=== PATIENT | female | born 1955 | race Caucasian/White ===

== ENCOUNTER 2022-11-19 15:01 | Emergency (ER) | payer MEDICAID, SELFPAY ==
--- NOTE | ~2022-11-19 | XR_ITS ---
EXAMINATION: XR KNEE, RIGHT CLINICAL INFORMATION: Knee pain COMPARISON: None available. TECHNIQUE: Four views of the right knee. FINDINGS: Medial there is loss of medial and patellofemoral joint space with mild periapical spurring. No acute fracture, dislocation or loose body seen. No bony erosive changes. The soft tissues are normal. XR/XR knee RT 3V IMPRESSION: Mild degenerative changes medial and patellofemoral compartment. No visible acute fracture or dislocation seen.
[2022-11-19 15:03] VITALS: BP 118/82; BP 172/73; PULSE 88; PULSE 96; RESP 20; TEMP 37.2; O2SAT 100; O2SAT 97; BMI 34.3
[2022-11-19] MEDS: Acetaminophen 325 MG TABLET 650 MG PO (16:18)
[2022-11-19] MEDS: Ketorolac Tromethamine 30 MG/ML VIAL IM (16:18)
[2022-11-19 16:38] VITALS: BP 147/77
--- NOTE | 2022-11-19 18:20 | ED.LOWEXIN ---
HPI - Extremity Injury (Lower) General Chief Complaint: Extremity Injury, Lower Stated Complaint: R knee pain per EMS Time Seen by Provider: 11/19/22 15:08 Source: patient, EMS, RN notes reviewed and old records reviewed Mode of arrival: EMS History of Present Illness HPI Narrative: 67-year-old female with a past medical history of osteoarthritis presenting to the ED complaining of acute on chronic right knee pain x few days. Reports this morning was unable to ambulate secondary to pain thus called EMS. Admits was scheduled for knee replacement however postponed surgery. Reports pain okay when still, worse with pressure/ambulation. Denies new or recent fall/injury or trauma, numbness/tingling, weakness, erythema/fever. MD complaint: knee injury Related Data Previous Rx's Medication Instructions Recorded acetaminophen 500 mg tablet 500 mg PO Q6H PRN fever or pain 11/19/22 (Tylenol Extra Strength) #14 tabs diclofenac sodium 1 % topical gel 4 g topical QID #100 grams 11/19/22 (Arthritis Pain (diclofenac)) ketorolac 10 mg tablet 10 mg PO TID PRN pain 5 days #15 11/19/22 tabs Allergies Allergy/AdvReac Type Severity Reaction Status Date / Time No Known Allergies Allergy Verified 11/19/22 15:10 Review of Systems Review of Systems: Constitutional: No Fever, No Chills ENT/Mouth: No Ear Pain, No Nasal Congestion, No sore throat, No Rhinorrhea, No Swallowing Difficulty Cardiovascular: No Chest Pain, No SOB Respiratory: No Cough Gastrointestinal: No Nausea, No Vomiting, No Diarrhea, No Constipation, No Abdominal pain Genitourinary: No Dysuria, No Urinary Frequency, No Flank Pain Musculoskeletal: + joint pain, No Myalgias, + Joint Swelling Skin: No Skin Lesions, No rash Neuro: No Weakness, No Numbness, No Paresthesias Yes all other systems are reviewed and are negative Constitutional: Constitutional: Reports as per [facility] Past Medical History Attestation statement: The following information was validated with the patient. Social History Social History Advance Directives: No Advance Directives Information Provided: No Physical Exam Vital Signs: Vital Signs: Last Vital Signs Temp 98.9 F 11/19/22 15:03 Pulse 96 11/19/22 15:03 Resp 20 04/16/23 15:03 BP 147/77 H 11/19/22 16:38 Pulse Ox 97 11/19/22 15:03 O2 Del Method Room Air 11/19/22 15:03 BMI result Body Mass Index 34.3 Const: General: cooperative, healthy appearing and no acute distress Orientation/consciousness: patient oriented x3 Limitations: no limitations HEENT: Head: Yes normal to inspection and Yes atraumatic Ears: hearing grossly normal bilaterally General nose exam: Normal external nose present Face and sinus: Yes normal facial exam Eyes: General: appearance normal, both eyes and all related structures EOM: EOMs intact bilaterally Neck: Neck: Yes normal visual inspection and Yes no meningeal signs Resp: Effort & Inspection: normal respiratory effort and no respiratory distress Cardio: Rate: regular rate Heart sounds: S1 normal heart sound present and S2 normal heart sound present Peripheral pulses: Peripheral pulses 2+ throughout Skin: Rashes: no rashes Wounds: no wounds Neuro: General: patient oriented x3, tone normal and no meningeal signs Gait exam (Neuro): Normal gait present Extrem: Other: Right knee with mild swelling, no erythema/warmth. Mildly tender to palpation. Flexion and extension limited secondary to pain/discomfort. NV intact distally. No pitting edema or calf tenderness General: Yes normal to inspection Course Course Course Narrative: XR knee RT 3V IMPRESSION: Mild degenerative changes medial and patellofemoral compartment. No visible acute fracture or dislocation seen. >> patient reports symptomatic improvement after IM Toradol and Tylenol. Bryon wrap applied for comfort/stability. Patient is supplied with crutches. Offered PT/case management however patient would rather be discharged home. Recommended close follow-up with her orthopedic Results discussed with patient including worrisome signs and symptoms and strict return precautions, and when to return to the emergency department. They verbalized understanding and feel safe for discharge at this time. Medications Administered Discontinued Medications Generic Name Dose Route Start Last Admin Trade Name Sammie PRN Reason Stop Dose Admin Acetaminophen 650 mg 11/19/22 15:34 11/19/22 16:18 Acetaminophen 325 Mg Tablet PO 11/19/22 15:35 650 mg ONCE ONE Administration Ketorolac Tromethamine 30 mg 11/19/22 15:34 11/19/22 16:18 Ketorolac Tromethamine 30 Mg/Ml Vial IM 11/19/22 15:35 30 mg ONCE ONE Administration Medical Decision Making Medical Decision Making [facility] Narrative: 67-year-old female with a past medical history of osteoarthritis presenting to the ED complaining of acute on chronic right knee pain x few days. On exam vital signs stable, NAD, nontoxic appearing, physical exam as above. No evidence of cellulitis/septic joint/arthritis. Concern for osteoarthritic flare vs tendon or ligamental or meniscus injury. Plan: X-rays, pain control Please refer to course for remaining clinical decision making, interpretation of labs/imaging results, and discussions with consultants and/or family members. Differential Diagnosis Differential Diagnoses: The differential diagnosis associated with the presentation includes As above Admission/Observation Consideration of admission/observation: Escalation of care including admission/observation considered Lab Data [facility] Lab Attestation statement: I reviewed the patient's lab results. Radiology Impression Discussion of test interpretation with radiology: I have reviewed the radiologist's reading. External Record Review External record reviewed: Inpatient record, Office record, Outpatient record, Prior outpatient labs, Prior outpatient radiology, Primary care record and Outside ED record Discharge Plan Discharge Clinical Impression: Knee osteoarthritis Patient Disposition: Home, Self-Care Instructions: Osteoarthritis (DC) Additional Instructions: Your x-ray shows osteoarthritis. Wear Bryon wrap for comfort and stability Use crutches as needed. Bear weight as tolerated. Rest Ice and elevate Toradol as an anti-inflammatory/pain medication, take with food In addition take Tylenol and apply topical diclofenac lotion which is an anti-inflammatory Follow-up with her doctor and Orthopedics Prescriptions: New acetaminophen [Tylenol Extra Strength] 500 mg tablet 500 mg PO Q6H PRN (Reason: fever or pain) Qty: 14 0RF ketorolac 10 mg tablet 10 mg PO TID PRN (Reason: pain) 5 Days Qty: 15 0RF diclofenac sodium [Arthritis Pain (diclofenac)] 1 % gel 4 g topical QID Qty: 100 0RF Rx Instructions: apply to single knee, ankle, foot; for foot includes sole/toes/top of foot Referrals: [facility] Orth[facility] Surgeons [Provider Group] - 1 week Center,[facility] [Primary Care Provider] -
== END 2022-11-19 18:42 | disposition home or self-care (01) ==
PROVIDERS: Emergency Provider Internal Medicine
DX: M17.11 Unilateral primary osteoarthritis, right knee (principal); M25.561 Pain in right knee; Z79.899 Other long term (current) drug therapy
CPT/HCPCS: 73562; 96372; 99284; J1885

== ENCOUNTER 2023-07-07 21:59 | Emergency (ER) | payer OTHER, SELFPAY ==
[2023-07-07 22:11] VITALS: BP 150/71; PULSE 78; O2SAT 99
[2023-07-07 22:13] VITALS: BP 141/75; PULSE 71; RESP 23; TEMP 36.4; O2SAT 98; BMI 35.4
[2023-07-07 22:19] VITALS: BP 141/75; PULSE 71; RESP 23; TEMP 36.4; O2SAT 97
--- NOTE | 2023-07-07 22:25 | ED_ITS ---
HPI - Anxiety General Chief Complaint: Anxiety Stated Complaint: Nausea/Anxiety Time Seen by Provider: 07/07/23 22:25 Source: patient Mode of arrival: ambulatory Limitations: no limitations History of Present Illness HPI narrative: Patient with anxiety/panic attacks prior to arrival felt similar attack and called 911 feel panicky take Seroquel which she took earlier no recent stress no chest pain or palpitation no fever or chills no cough or shortness of breath , feels nauseated Related Data Previous Rx's Medication Instructions Recorded acetaminophen 500 mg tablet 500 mg PO Q6H PRN fever or pain 11/19/22 (Tylenol Extra Strength) #14 tabs diclofenac sodium 1 % topical gel 4 g topical QID #100 grams 11/19/22 (Arthritis Pain (diclofenac)) ketorolac 10 mg tablet 10 mg PO TID PRN pain 5 days #15 11/19/22 tabs Allergies Allergy/AdvReac Type Severity Reaction Status Date / Time No Known Allergies Allergy Verified 11/19/22 15:10 Review of Systems Review of Systems: Yes all other systems are reviewed and are negative [facility] Social History Social History Smoked in Last 30 Days: No Use of substances other than those prescribed or required for medical reasons: No Advance Directives: No Advance Directives Information Provided: No Physical Exam Vital Signs: Vital Signs: Last Vital Signs Temp 97.6 F 07/07/23 22:19 Pulse 71 07/07/23 22:19 Resp 23 H 07/07/23 22:19 BP 141/75 H 07/07/23 22:19 Pulse Ox 97 07/07/23 22:19 O2 Del Method Room Air 07/07/23 22:19 BMI result Body Mass Index 35.4 Appearance: Alert. Oriented X3. No acute distress. Anxious Eyes: PERRLA, No Nystagmus ENT: Pharynx normal. Oral Mucosa moist Neck: Normal inspection. Neck supple. CVS: Normal heart rate and rhythm. Pulses normal. Respiratory: No respiratory distress. Equal air entry bilateral, no wheezing/rales/rhonchi Abdomen: Soft and nontender. Bowel sounds are present, Skin: Skin warm and dry. Normal skin color. Normal skin turgor. Extremities: No lower extremity edema. No calf tenderness Neuro: Oriented X 3. No motor deficit. Medications Administered Discontinued Medications Generic Name Dose Route Start Last Admin Trade Name Freq PRN Reason Stop Dose Admin Sodium Chloride 1,000 mls @ 999 mls/hr 07/07/23 23:20 07/08/23 00:00 Ns IV 07/08/23 00:20 999 mls/hr .Q1H1M ONE Administration Lorazepam 1 mg 07/07/23 23:20 07/07/23 23:55 Lorazepam 2 Mg/Ml Vial IVPUSH 07/07/23 23:21 1 mg ONCE ONE Administration Ondansetron HCl 4 mg 07/07/23 23:20 07/07/23 23:56 Ondansetron Hcl 4 Mg/2 Ml Vial IVPUSH 07/07/23 23:21 4 mg ONCE ONE Administration Medical Decision Making Medical Decision Making [facility] Narrative: Patient with anxiety UA negative no other symptoms feeling much better after Ativan will discharge patient home advised to continue her Seroquel Differential Diagnosis Differential Diagnoses: The differential diagnosis associated with the presentation includes Anxiety/panic attack/UTI Lab Data [facility] Lab Attestation statement: I reviewed the patient's lab results. Labs: Lab Results 07/08/23 Range/Units 00:55 Urine Color Yellow Urine Appearance Clear Urine pH 7.5 (5.0-9.0) Ur Specific [place] 1.010 (1.005-1.025) Urine Protein Negative (Neg-Trace) mg/dL Urine Glucose (UA) Negative (Negative) mg/dL Urine Ketones Negative (Negative) mg/dL Urine Blood Trace (Negative) Urine Nitrite Negative (Negative) Ur Leukocyte Esterase Trace H (Negative) Urine RBC 0-2 (0-2) /HPF Urine WBC 6-10 H (0-5) /HPF Ur Squamous Epith Cells 0-2 (0-2) /HPF Urine Bacteria None Seen (None Seen) Hyaline Casts 0-2 (0-2) /LPF Discharge Plan Discharge Clinical Impression: Acute anxiety Patient Disposition: Home, Self-Care Instructions: Generalized Anxiety Disorder (ED) Additional Instructions: Could you take your medication as prescribed Rest at home and follow with PCP Prescriptions: No Action acetaminophen [Tylenol Extra Strength] 500 mg tablet 500 mg PO Q6H PRN (Reason: fever or pain) Qty: 14 0RF ketorolac 10 mg tablet 10 mg PO TID PRN (Reason: pain) 5 Days Qty: 15 0RF diclofenac sodium [Arthritis Pain (diclofenac)] 1 % gel 4 g topical QID Qty: 100 0RF Rx Instructions: apply to single knee, ankle, foot; for foot includes sole/toes/top of foot
[2023-07-07] MEDS: LORazepam 2 MG/ML VIAL 1 MG IVPUSH (23:55)
[2023-07-07] MEDS: ondansetron HCL 4 MG/2 ML VIAL IVPUSH (23:56)
[2023-07-08] MEDS: 0.9 % Sodium Chloride 1,000 ML 999 ML IV
[2023-07-08 01:05] LABS: Appearance Urine Clear; Color Urine Yellow; Glucose Urine UA Negative (Negative); Leukocyte Esterase Urine Trace (Negative); Nitrite Urine Negative (Negative); PH 7.5 (5.0-9.0); UMIC TRIGGER UACC YES; Urine Blood Trace (Negative); Urine Ketones Negative (Negative); Urine Protein Negative (Neg-Trace)
[2023-07-08 01:10] LABS: Bacteria Urine None Seen (None Seen); Hyaline Casts Urine 0-2 /LPF (0-2); RBC Urine 0-2 /HPF (0-2); Squamous Epithelial Cell Urine 0-2 /HPF (0-2); UACC Culture Trigger YES
== END 2023-07-08 01:59 | disposition home or self-care (01) ==
PROVIDERS: Emergency Provider Internal Medicine; PCP Nurse Practitioner Family
DX: F41.9 Anxiety disorder, unspecified (principal); R11.0 Nausea; Z79.899 Other long term (current) drug therapy
CPT/HCPCS: 81001; 81003; 87086; 96361; 96374; 96375; 99284; J2060; J2405

== ENCOUNTER 2024-01-07 17:38 | Emergency (ER) | payer OTHER, SELFPAY ==
[2024-01-07 18:03] VITALS: BP 190/90; PULSE 80; O2SAT 98
[2024-01-07 18:05] VITALS: BP 178/78; PULSE 85; RESP 18; TEMP 36.8; O2SAT 96; BMI 34.3
[2024-01-07 18:11] VITALS: BP 178/78; PULSE 85; RESP 18; TEMP 36.8; O2SAT 96
--- NOTE | 2024-01-07 18:17 | ECG_ITS ---
Test Reason : ANXIETY Blood Pressure : / mmHG Vent. Rate : 073 BPM Atrial Rate : 073 BPM P-R Int : 162 ms QRS Dur : 088 ms QT Int : 438 ms P-R-T Axes : 051 -33 088 degrees QTc Int : 482 ms Normal sinus rhythm Left axis deviation Moderate voltage criteria for LVH, may be normal variant ( R in aVL , [place] product ) Abnormal ECG When compared with ECG of 27-DEC-2004 00:16, No significant change was found Referred By: Talita Duran Electronically Signed By:CASS ZAMORA MD
--- NOTE | 2024-01-07 18:19 | ED_ITS ---
HPI - General Adult General Chief complaint: Anxiety Stated complaint: anxiety attack Time Seen by Provider: 01/07/24 18:02 Source: patient Mode of arrival: EMS Limitations: no limitations History of Present Illness HPI narrative: Patient is a 68-year-old female who presents to the emergency department via EMS for evaluation of the panic attack. She reports that while at home today she began to feel nauseous, sweaty, and having shortness of breath. She admits to this feeling similar to prior panic attack that she had at the end of last year. She states she was seen in the emergency department here and given Ativan with improvement in her symptoms. She takes daily medication from her primary care provider for management of her anxiety, she received a prescription for Ativan in the past but suture has only needed to use this on 1 occasion. When asked if there was any precipitating events that would have brought on a panic attack today she commonly states ?I think my 's dog may have an infection?. While in the room she states that she ?feels another attack coming on? she is feeling excessively nauseous, mildly short of breath, and sweaty. She denies any recent ill symptoms fevers chills chest pain palpitations vomiting abdominal pain numbness or tingling of her extremities. Related Data Previous Rx's ?Medication ?Instructions ?Recorded acetaminophen 500 mg tablet 500 mg PO Q6H PRN fever or pain 11/19/22 (Tylenol Extra Strength) #14 tabs diclofenac sodium 1 % topical gel 4 g topical QID #100 grams 11/19/22 (Arthritis Pain (diclofenac)) ketorolac 10 mg tablet 10 mg PO TID PRN pain 5 days #15 11/19/22 tabs Allergies Allergy/AdvReac Type Severity Reaction Status Date / Time No Known Allergies Allergy Verified 01/07/24 18:10 Review of Systems 2 Review of Systems: Yes all other systems are reviewed and are negative PMFSH Past Medical History Attestation statement: The following information was validated with the patient. Source: old records reviewed Social History Social History Smoked in Last 30 Days: No Use of substances other than those prescribed or required for medical reasons: Yes Substance Use Type: Marijuana Substance Use Frequency: Daily Last Used Substance: Hours (ago) Advance Directives: No Advance Directives Information Provided: No Do you have a plan to hurt others: No Plan Physical Exam ED Vital Signs: Vital Signs - 24 hr 01/07/24 18:05 01/07/24 18:11 Temperature 98.3 F 98.3 F Pulse Rate 85 85 Respiratory Rate 18 18 Blood Pressure 178/78 H 178/78 H Pulse Oximetry 96 96 Oxygen Delivery Method Room Air Room Air BMI result Body Mass Index 34.3 Appearance: Alert.?Oriented to person, place and time. No acute distress.?Normal affect. Eyes: Pupils equal, round and reactive to light.? ENT: Pharynx normal.?? Neck: Normal inspection.? Neck supple.?? CVS: Heart sounds normal. Normal heart rate and rhythm.? Pulses normal.?? Respiratory: No respiratory distress.? Lung sounds clear to auscultation bilaterally?? Abdomen: Soft and non-tender. Normoactive bowel sounds. No pulsatile mass.?? Skin: Skin warm and clammy.? Normal skin color.? Extremities: No lower extremity edema.? No calf ttp? Neuro: Moves all extremities spontaneously. Sensation intact bilaterally. Ambulates with normal steady gait. Course Reevaluation(s) Reevaluation #1: Patient vomited immediately after lorazepam administration, additional order her lorazepam 1mg placed. Reevaluation #2: Patient has been calm and cooperative. Resting comfortably. Reports improvement in fact complete resolution of her symptoms after receiving lorazepam. CBC and CMP are overall unremarkable. High sensitive troponin is below detectable limits, EKG without acute ischemic findings. She denies SI/HI. She was offered to speak with care team, she however feels that she is stable to go home. She reports that she has lorazepam available to her at home. At this time I see no indication that she needs to be held in the hospital, stable for discharge. Discussed worrisome signs and symptoms that would warrant re- evaluation in the emergency department. Recommended outpatient follow-up with primary care provider. Time: 22:23 Medications Administered Discontinued Medications Generic Name Dose Route Start Last Admin Trade Name Freq PRN Reason Stop Dose Admin Lorazepam 1 mg 01/07/24 18:16 01/07/24 18:32 Lorazepam 1 Mg Tablet PO 01/07/24 18:17 1 mg ONCE ONE Administration Lorazepam 1 mg 01/07/24 19:04 01/07/24 19:23 Lorazepam 2 Mg/Ml Vial IM 01/07/24 19:05 1 mg ONCE ONE Administration Ondansetron HCl 4 mg 01/07/24 18:16 01/07/24 18:32 Ondansetron Odt 4 Mg Tab.Ezequieldavina [place]U 01/07/24 18:17 4 mg ONCE ONE Administration Ondansetron HCl 4 mg 01/07/24 19:04 01/07/24 19:24 Ondansetron Hcl 4 Mg/2 Ml Vial IM 01/07/24 19:05 4 mg ONCE ONE Administration Medical Decision Making Medical Decision Making [facility] Narrative: Patient is a 68-year-old female with past medical history of anxiety presenting to emergency department with subjective report of panic attack as per HPI. At the time my evaluation she is speaking calmly, is noted to have moist clammy skin, no respiratory distress but is endorsing mild shortness of breath, experiencing nausea but no active vomiting, her abdominal examination is benign, heart sounds are regular. Given her accompanying shortness of breath, plan to obtain serum labs to exclude alternative pathology for her symptoms in addition to EKG. Will trial management with Zofran and Ativan. Differential Diagnosis Differential Diagnoses: The differential diagnosis associated with the presentation includes (Anxiety, panic attack, ACS, gastroenteritis, viral syndrome) Admission/Observation Consideration of admission/observation: Escalation of care including admission/observation considered Lab Data [facility] Lab Attestation statement: I reviewed the patient's lab results. 01/07/24 18:10 01/07/24 18:10 Labs: Lab Results 01/07/24 01/07/24 Range/Units 18:10 20:41 WBC 12.3 H (4.8-10.8) X10*3/uL RBC 4.67 (4.20-5.50) X10*6/uL Hgb 14.4 (12.0-16.0) g/dl Hct 43.7 (37.0-47.0) % MCV 93.6 (80.0-98.0) fL MCH 30.8 (27.0-33.0) pg MCHC 33.0 (31.0-35.0) g/dl RDW 13.3 (11.0-16.0) % Plt Count 386 (160-400) X10*3/uL MPV 9.4 (9.4-12.3) fL Immature Gran % (Auto) Cancelled Neut % (Auto) Cancelled Lymph % (Auto) Cancelled [place] % (Auto) Cancelled Eos % (Auto) Cancelled Baso % (Auto) Cancelled Lymph # (Auto) Cancelled [place] # (Auto) Cancelled Eos # (Auto) Cancelled Baso # (Auto) Cancelled Abs Immat Gran (auto) Cancelled Absolute Neuts (auto) Cancelled Absolute Nucleated RBC 0.000 (0.0-0.012) X10*3/uL Nucleated RBC % (auto) 0.0 (0.0-0.2) /100WBC Neutrophils % (Manual) 57 (45-73) % Lymphocytes % (Manual) 32 (20-40) % Atypical Lymphs % (Man) 7 H (0-6) % Monocytes % (Manual) 4 (2-11) % Abs Neuts (Manual) 7.0 (2.0-8.3) X10*3/uL Lymphocytes # (Manual) 3.9 (1.2-4.9) X10*3/uL Atyp Lymphs # (Manual) 0.9 x10*3/uL Monocytes # (Manual) 0.5 (0.1-1.2) X10*3/uL Platelet Estimate NORMAL (NORMAL) Plt Morphology Comment NORMAL RBC Morphology NORMAL Sodium 142 (135-145) mmol/L Potassium 3.7 (3.3-5.1) mmol/L Chloride 107 (96-108) mmol/L Carbon Dioxide 19 L (22-29) mmol/L Anion Gap 20 (12-20) BUN 15 (9-16) mg/dL Creatinine 1.10 (0.5-1.4) mg/dL Estim Creat Clear Calc 53.4 Estimated GFR 49 Random Glucose 119 H (60-115) mg/dL Calcium 9.4 (8.4-10.2) mg/dL Total Bilirubin 0.4 (0.0-1.0) mg/dL AST 21 (5-31) U/L ALT 20 (0-31) U/L Alkaline Phosphatase 117 (39-117) U/L Troponin I High Sens < 2.7 (<3.5-17.0) ng/L Total Protein 8.2 H (6.5-8.0) g/dL Albumin 4.6 (3.5-5.0) g/dL Urine Color Yellow Urine Appearance Clear Urine pH 6.0 (5.0-9.0) Ur Specific [place] 1.015 (1.005-1.025) Urine Protein Negative (Neg-Trace) mg/dL Urine Glucose (UA) Negative (Negative) mg/dL Urine Ketones Negative (Negative) mg/dL Urine Blood Negative (Negative) Urine Nitrite Negative (Negative) Ur Leukocyte Esterase Moderate (2+) H (Negative) Urine RBC 0-2 (0-2) /HPF Urine WBC 11-20 H (0-5) /HPF Ur Squamous Epith Cells 0-2 (0-2) /HPF Urine Bacteria None Seen (None Seen) Hyaline Casts 0-2 (0-2) /LPF Urine Opiates Screen Not Detected (Not Detect) Ur Buprenorphine Scrn Not Detected (Not Detect) ng/mL Ur Oxycodone Screen Not Detected (Not Detect) ng/mL Urine Methadone Screen Not Detected (Not Detect) ng/mL Urine Fentanyl Screen Not Detected (Not Detect) Ur Barbiturates Screen Not Detected (Not Detect) Ur Phencyclidine Scrn Not Detected (Not Detect) Ur Amphetamines Screen Not Detected (Not Detect) U Benzodiazepines Scrn Not Detected (Not Detect) Urine Cocaine Screen Not Detected (Not Detect) U Marijuana (THC) Screen POSITIVE H (Not Detect) Ethyl Alcohol < 10 mg/dL Independent Interpretation I performed an independent interpretation of an: EKG Interpretation: Rate: 73 Rhythm:? Normal sinus rhythm Normal P waves.? Normal BOBBI.?? Normal QRS complex.?? ST T wave :??No ST elevation, no ST depression qTC: 482 The study has been interpreted contemporaneously by me. Independent Historian Clinical information obtained from an independent historian. History obtained from or confirmed by: EMS Prescription Management I considered prescription management with: Other (Has lorazepam at home, no additional prescription required) Discharge Plan Discharge Clinical Impression: Acute anxiety Patient Disposition: Home, Self-Care Instructions: Anxiety (ED) Additional Instructions: Follow-up with your primary care provider. Use your lorazepam as previously prescribed as needed for anxiety. Return back to emergency department any new or worsening symptoms or concerns. Prescriptions: No Action acetaminophen [Tylenol Extra Strength] 500 mg tablet 500 mg PO Q6H PRN (Reason: fever or pain) Qty: 14 0RF ketorolac 10 mg tablet 10 mg PO TID PRN (Reason: pain) 5 Days Qty: 15 0RF diclofenac sodium [Arthritis Pain (diclofenac)] 1 % gel 4 g topical QID Qty: 100 0RF Rx Instructions: apply to single knee, ankle, foot; for foot includes sole/toes/top of foot Referrals: Physician,Unknown J [Primary Care Provider] - Print Language: Macedonian
[2024-01-07 18:23] LABS: Hematocrit 43.7 % (37.0-47.0); Hemoglobin 14.4 g/dl (12.0-16.0); Mean Corpuscular Hemoglobin 30.8 pg (27.0-33.0); Mean Corpuscular Volume 93.6 fL (80.0-98.0); Mean Platelet Volume 9.4 fL (9.4-12.3); Platelet Count 386 X10*3/uL (160-400); Red Blood Count 4.67 X10*6/uL (4.20-5.50); Red Cell Distribution Width 13.3 % (11.0-16.0); White Blood Count 12.3 X10*3/uL (4.8-10.8)
[2024-01-07] MEDS: Ondansetron ODT 4 MG TAB.RAPDIS TRANSLINGU (18:32)
[2024-01-07] MEDS: LORazepam 1 MG TABLET PO (18:32)
[2024-01-07 18:37] LABS: Alanine Aminotransferase 20 U/L (0-31); Albumin Level 4.6 g/dL (3.5-5.0); Alkaline Phosphatase 117 U/L (39-117); Anion Gap 20 (12-20); Aspartate Amino Transferase 21 U/L (5-31); Bilirubin Total 0.4 mg/dL (0.0-1.0); Blood Urea Nitrogen 15 mg/dL (9-16); Calcium 9.4 mg/dL (8.4-10.2); Carbon Dioxide 19 mmol/L (22-29); Chloride 107 mmol/L (96-108); Creatinine Clr Calc Pharmacy 53.4; Estimated Glomerular Filt Rate 49; Ethanol < 10 mg/dL; Glucose Random 119 mg/dL (60-115); Potassium 3.7 mmol/L (3.3-5.1); Sodium 142 mmol/L (135-145); Total Protein 8.2 g/dL (6.5-8.0)
[2024-01-07 18:53] LABS: Atypical Lymph Absolute Manual 0.9 x10*3/uL; Atypical Lymphs Percent Manual 7 % (0-6); Lymphocytes Absolute Manual 3.9 X10*3/uL (1.2-4.9); Lymphocytes Percent Manual 32 % (20-40); Monocytes Absolute Manual 0.5 X10*3/uL (0.1-1.2); Monocytes Percent Manual 4 % (2-11); Neutrophils Percent Manual 57 % (45-73)
[2024-01-07 18:54] LABS: Platelet Estimate NORMAL (NORMAL); Platelet Morphology Comment NORMAL; RBC Morphology NORMAL
[2024-01-07 19:02] LABS: Troponin-I High Sensitivity < 2.7 ng/L (<3.5-17.0)
[2024-01-07] MEDS: LORazepam 2 MG/ML VIAL 1 MG IM (19:23)
[2024-01-07] MEDS: ondansetron HCL 4 MG/2 ML VIAL IM (19:24)
--- NOTE | 2024-01-07 19:51 | PC.NURSE ---
upon arrival to the unit, patient laid in bed c/o nausea and apparently had vomited an ativan with prior nurse, client soon thereafter asked about an IV. t/w discussed with provider regarding medication options...patient reported positive effect with IM medications.
--- NOTE | 2024-01-07 20:35 | PC.NURSE ---
discussed w provider regarding care team assessment. t/w went into clients room and assessed for level of safety prior to coming to hopsital, client stated she had no thoughts or plan to hurt herself or others prior to coming today. notified provider.
[2024-01-07 21:08] LABS: Appearance Urine Clear; Color Urine Yellow; Glucose Urine UA Negative (Negative); Leukocyte Esterase Urine Moderate (2+) (Negative); Nitrite Urine Negative (Negative); Specific Gravity - Urine 1.015 (1.005-1.025); UMIC TRIGGER UACC YES; Urine Blood Negative (Negative); Urine Ketones Negative (Negative); Urine Protein Negative (Neg-Trace)
[2024-01-07 21:11] LABS: Bacteria Urine None Seen (None Seen); Hyaline Casts Urine 0-2 /LPF (0-2); RBC Urine 0-2 /HPF (0-2); Squamous Epithelial Cell Urine 0-2 /HPF (0-2); UACC Culture Trigger YES
[2024-01-07 21:21] LABS: Amphetamine Screen Urine Not Detected (Not Detect); Barbiturates, Urine Not Detected (Not Detect); Benzodiazepines Screen Urine Not Detected (Not Detect); Buprenorphine Scr Not Detected (Not Detect); Cannabinoid Screen Urine POSITIVE (Not Detect); Cocaine Screen Urine Not Detected (Not Detect); Fentanyl, urine Not Detected (Not Detect); Methadone Screen, Urine Not Detected (Not Detect); Opiate Screen Urine Not Detected (Not Detect); Oxycodone Screen Urine Not Detected (Not Detect); Phencyclidine Screen Urine Not Detected (Not Detect)
[2024-01-07 22:36] VITALS: BP 128/80; PULSE 80; RESP 16; TEMP 37; O2SAT 98
--- NOTE | 2024-01-07 22:41 | PC.NURSE ---
client responded that she tripped in the restroom landing on her knee, changing for dc t/w asked client if she had any pain or wanted evaluation for this, client reported no. client walked to waiting room
== END 2024-01-07 22:44 | disposition home or self-care (01) ==
PROVIDERS: Nurse Practitioner Family; Emergency Provider Internal Medicine
DX: F41.9 Anxiety disorder, unspecified (principal); R11.0 Nausea; R06.02 Shortness of breath; F12.90 Cannabis use, unspecified, uncomplicated; Z79.899 Other long term (current) drug therapy
CPT/HCPCS: 36415; 80053; 80307; 81001; 84484; 85007; 85027; 87086; 93005; 96372; 99284; J2060; J2405

== ENCOUNTER → 2024-01-07 18:17 | Outpatient (BNV) | payer OTHER, SELFPAY | PROVIDERS: Emergency Provider Internal Medicine; Visit Provider Internal Medicine Cardiovascular Disease | DX: R94.31 Abnormal electrocardiogram [ECG] [EKG] (principal) | CPT/HCPCS: 93010 ==

== ENCOUNTER 2024-02-12 19:42 | Emergency (ER) | payer OTHER, SELFPAY ==
[2024-02-12 19:55] VITALS: BP 153/52; PULSE 77; RESP 14; TEMP 36.4; O2SAT 97; BMI 39.3
--- NOTE | 2024-02-12 20:04 | ECG_ITS ---
Test Reason : ANXIETY Blood Pressure : / mmHG Vent. Rate : 073 BPM Atrial Rate : 073 BPM P-R Int : 156 ms QRS Dur : 082 ms QT Int : 414 ms P-R-T Axes : 029 -30 076 degrees QTc Int : 456 ms Normal sinus rhythm Left axis deviation Minimal voltage criteria for LVH, may be normal variant ( R in aVL ) Nonspecific T wave abnormality Abnormal ECG When compared with ECG of 07-JAN-2024 18:24, No significant change was found Referred By: Generic ED Physician Electronically Signed By:Aram Britton
[2024-02-12 20:36] LABS: MANUAL DIFF FLAG NO
[2024-02-12 20:38] LABS: Basophils Absolute Auto 0.1 X10*3/uL (0.0-0.2); Basophils Percent Auto 0.5 % (0-2); Eosinophils Absolute Auto 0.1 X10*3/uL (0.0-0.4); Eosinophils Percent Auto 0.7 % (0-4); Hematocrit 39.3 % (37.0-47.0); Hemoglobin 13.1 g/dl (12.0-16.0); Imm Gran Abs Auto 0.05 X10*3/uL (0.00-0.03); Imm Gran Pct Auto 0.5 % (0.0-0.4); Lymphocytes Absolute Auto 3.6 X10*3/uL (1.2-4.9); Mean Corpuscular HGB Conc 33.3 g/dl (31.0-35.0); Mean Corpuscular Hemoglobin 30.5 pg (27.0-33.0); Mean Corpuscular Volume 91.6 fL (80.0-98.0); Mean Platelet Volume 9.2 fL (9.4-12.3); Monocytes Absolute Auto 0.8 X10*3/uL (0.1-1.2); Monocytes Percent Auto 7.7 % (2-11); Neutrophils Absolute Auto 5.6 x10*3/uL (2.0-8.3); Neutrophils Percent Auto 55.6 % (45-73); Platelet Count 307 X10*3/uL (160-400); Red Blood Count 4.29 X10*6/uL (4.20-5.50); Red Cell Distribution Width 13.3 % (11.0-16.0); White Blood Count 10.1 X10*3/uL (4.8-10.8)
[2024-02-12 20:52] LABS: Anion Gap 16 (12-20); Blood Urea Nitrogen 16 mg/dL (9-16); Calcium 8.5 mg/dL (8.4-10.2); Carbon Dioxide 20 mmol/L (22-29); Chloride 110 mmol/L (96-108); Creatinine Clr Calc Pharmacy 58.9; Estimated Glomerular Filt Rate 54; Glucose Random 112 mg/dL (60-115); Potassium 4.9 mmol/L (3.3-5.1); Sodium 141 mmol/L (135-145)
[2024-02-12 20:59] LABS: Troponin-I High Sensitivity < 2.7 ng/L (<3.5-17.0)
[2024-02-12 22:00] VITALS: BP 152/54; PULSE 77; RESP 14; TEMP 36.4; O2SAT 96
--- NOTE | 2024-02-12 22:22 | ED_ITS ---
HPI - General Adult General Chief complaint: Anxiety Stated complaint: nausea, anxiety attack? Time Seen by Provider: 02/12/24 21:06 Source: patient and EMS Mode of arrival: EMS Limitations: no limitations History of Present Illness ED Provider: Dr. Edna Anderson HPI narrative: Patient comes to the emergency room by ambulance complaining of a panic attack. Patient states that since she was 20 years old, patient has had intermittent panic attacks. Patient states that she takes Ativan 0.5 mg p.o. tablet at home and usually that helps with the symptoms. However, 2 the patient was very nauseous. Patient denies vomiting or having diarrhea. Patient received Zofran but states that she is still pretty nauseous. Patient is no longer anxious or having a panic attack. Patient denies SI or HI Related Data Previous Rx's ?Medication ?Instructions ?Recorded acetaminophen 500 mg tablet 500 mg PO Q6H PRN fever or pain 11/19/22 (Tylenol Extra Strength) #14 tabs diclofenac sodium 1 % topical gel 4 g topical QID #100 grams 11/19/22 (Arthritis Pain (diclofenac)) ketorolac 10 mg tablet 10 mg PO TID PRN pain 5 days #15 11/19/22 tabs Allergies Allergy/AdvReac Type Severity Reaction Status Date / Time No Known Allergies Allergy Verified 02/12/24 20:01 Review of Systems 2 Review of Systems: Constitutional : No Weight loss, No Fever, No Chills, No Night Sweats, No Fatigue, No Malaise ENT/Mouth : No Hearing loss, No Ear Pain, No Nasal Congestion, No Sinus Pain, No Hoarseness, No sore throat, No Rhinorrhea, No Swallowing Difficulty Eyes: No Eye Pain, No Swelling, No Redness, No Foreign Body, No Discharge, No Vision Changes Cardiovascular : No Chest Pain, No SOB, No Dyspnea on Exertion, No Orthopnea, No Edema, No Palpitations Respiratory : No Cough, No Sputum, No Wheezing, No Smoke Exposure, No Dyspnea Gastrointestinal : Complaining of Nausea, No Vomiting, No Diarrhea, No Constipation, No abdominal Pain, No Hematochezia, No Melena Genitourinary : no irregular bleeding, No Dysuria, No Urinary Frequency, No Hematuria, No Urinary Incontinence, No Urgency, No Flank Pain, No Urinary Flow Changes, No Hesitancy Musculoskeletal : No joint pain, No Myalgias, No Joint Swelling Skin : No Skin Lesions, No rash Neuro : No Weakness, No Numbness, No Paresthesias, No Loss of Consciousness, No Dizziness, No Headache Psych : Complaining of a panic attack, No Depression, No SI/HI/AH/VH, No Social Issues, Heme/Lymph: No Bruising, No Bleeding,No Lymphadenopathy Endocrine : No Polyuria, No Polydipsia, No Temperature Intolerance [facility] Social History Social History Substance Use Type: Marijuana Advance Directives: No Advance Directives Information Provided: No Do you have a plan to hurt others: No Plan Physical Exam ED Vital Signs: Vital Signs - 24 hr 02/12/24 19:55 Temperature 97.6 F Pulse Rate 77 Respiratory Rate 14 Blood Pressure 153/52 H Pulse Oximetry 97 Oxygen Delivery Method Room Air BMI result Body Mass Index 39.3 Const Other: Appearance: Alert. Oriented X3. No acute distress. Eyes: Pupils equal, round and reactive to light. ENT: Pharynx normal. Neck: Normal inspection. Neck supple. No lymph nodes noted. No crepitus CVS: Normal heart rate and rhythm. Pulses normal. Normal S1 and S2 Respiratory: No respiratory distress. Breath sounds normal. No Wheezing. No rales Abdomen: Soft and nontender. No rigidity. No distention. Skin: Skin warm and dry. Normal skin color. Normal skin turgor. Extremities: No lower extremity edema. No Lacerations. No Rash Neuro: Oriented X 3. No motor deficit. No sensory deficit. Moving all extremities. No slurred speech. CN 2 through 12 grossly intact Psych: calm, cooperative, normal affect Course Course Course Narrative: -overall, patient feeling much better, no longer having pain attacks, patient is still complaining of nausea, patient already received p.o. Zofran. -patient was given another dose of p.o. medication, Compazine p.o. 10 mg Medical Decision Making Medical Decision Making [facility] Narrative: -my interpretation of EKG, normal sinus rhythm, heart rate 73, no ST segment depression or elevation, no T-wave inversion, QTC 56 Lab Data 02/12/24 20:32 02/12/24 20:32 Labs: Lab Results 02/12/24 Range/Units 20:32 WBC 10.1 (4.8-10.8) X10*3/uL RBC 4.29 (4.20-5.50) X10*6/uL Hgb 13.1 (12.0-16.0) g/dl Hct 39.3 (37.0-47.0) % MCV 91.6 (80.0-98.0) fL MCH 30.5 (27.0-33.0) pg MCHC 33.3 (31.0-35.0) g/dl RDW 13.3 (11.0-16.0) % Plt Count 307 (160-400) X10*3/uL MPV 9.2 L (9.4-12.3) fL Immature Gran % (Auto) 0.5 H (0.0-0.4) % Neut % (Auto) 55.6 (45-73) % Lymph % (Auto) 35.0 (20-40) % [place] % (Auto) 7.7 (2-11) % Eos % (Auto) 0.7 (0-4) % Baso % (Auto) 0.5 (0-2) % Lymph # (Auto) 3.6 (1.2-4.9) X10*3/uL [place] # (Auto) 0.8 (0.1-1.2) X10*3/uL Eos # (Auto) 0.1 (0.0-0.4) X10*3/uL Baso # (Auto) 0.1 (0.0-0.2) X10*3/uL Abs Immat Gran (auto) 0.05 H (0.00-0.03) X10*3/uL Absolute Neuts (auto) 5.6 (2.0-8.3) x10*3/uL Absolute Nucleated RBC 0.000 (0.0-0.012) X10*3/uL Nucleated RBC % (auto) 0.0 (0.0-0.2) /100WBC Sodium 141 (135-145) mmol/L Potassium 4.9 D (3.3-5.1) mmol/L Chloride 110 H (96-108) mmol/L Carbon Dioxide 20 L (22-29) mmol/L Anion Gap 16 (12-20) BUN 16 (9-16) mg/dL Creatinine 1.02 (0.5-1.4) mg/dL Estim Creat Clear Calc 58.9 Estimated GFR 54 Random Glucose 112 (60-115) mg/dL Calcium 8.5 D (8.4-10.2) mg/dL Troponin I High Sens < 2.7 (<3.5-17.0) ng/L Discharge Plan Discharge Clinical Impression: Acute anxiety, Nausea Patient Disposition: Home, Self-Care Instructions: Anxiety (ED) Additional Instructions: Please follow-up with your primary care physician tomorrow. If you have any worsening or new symptoms, please return to the emergency room or call 911 Prescriptions: No Action acetaminophen [Tylenol Extra Strength] 500 mg tablet 500 mg PO Q6H PRN (Reason: fever or pain) Qty: 14 0RF ketorolac 10 mg tablet 10 mg PO TID PRN (Reason: pain) 5 Days Qty: 15 0RF diclofenac sodium [Arthritis Pain (diclofenac)] 1 % gel 4 g topical QID Qty: 100 0RF Rx Instructions: apply to single knee, ankle, foot; for foot includes sole/toes/top of foot Print Language: Slovenian
[2024-02-12] MEDS: LORazepam 0.5 MG TABLET PO (22:32)
[2024-02-12] MEDS: Prochlorperazine Maleate 5 MG TABLET 10 MG PO (22:37)
[2024-02-12 23:05] VITALS: BP 152/54; PULSE 77; RESP 17; TEMP 36.4; O2SAT 96
== END 2024-02-12 23:10 | disposition home or self-care (01) ==
PROVIDERS: Emergency Provider Emergency Medicine
DX: F41.0 Panic disorder [episodic paroxysmal anxiety] (principal); R11.0 Nausea
CPT/HCPCS: 36415; 80048; 84484; 85025; 93005; 99283; 99284

== ENCOUNTER → 2024-02-12 20:04 | Outpatient (BNV) | payer OTHER, SELFPAY | PROVIDERS: Emergency Provider Emergency Medicine; Visit Provider Internal Medicine Cardiovascular Disease | DX: R94.31 Abnormal electrocardiogram [ECG] [EKG] (principal) | CPT/HCPCS: 93010 ==